=== PATIENT | male | born 1950 | race Caucasian/White ===

== ENCOUNTER 2018-08-20 05:28 | Day surgery (SDC) | payer OTHER, BC ==
[~2018-08-20] VITALS: Ht 180.3 cm; Wt 136.1 kg
--- NOTE | ~2018-08-20 | O ---
[facility] [place] [address] OPERATIVE REPORT Name: CLAYTON ESCALANTE Room #: 150-7 [facility]..#: [id number] Admission: 08/20/18 Attend Phys: Messi Elkins MD Discharge: Date of : 52 Report #: [id number] THIS REPORT FOR: //name// CC: Michael Elkins COGNOS CONSULTANT: None. PREOPERATIVE DIAGNOSIS: Bilateral lower lid ectropion. POSTOPERATIVE DIAGNOSIS: Bilateral lower lid ectropion. OPERATION PERFORMED: Bilateral lower lid ectropion repair. ANESTHESIA: Local with IV sedation. COMPLICATIONS: None. 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 The current procedure is undertaken in order to improve the patient's visual function, lacrimal outflow and level of comfort. Informed consent was obtained to include but not limited to the risk of loss of vision, bleeding, infection, scarring, failure to improve the problem and need for further surgery. DESCRIPTION OF OPERATION: The patient was taken to the operating room, where 2% Xylocaine with epinephrine mixed with equal parts of 0.75% Marcaine with Wydase was administered transcutaneously and transconjunctivally to the lower lid and lateral canthal area. The patient was then prepped and draped in the usual sterile fashion. A Nelson clamp was then used to clamp the lateral canthus, following which a sharp canthotomy and cantholysis were performed. The tarsal strip was prepared laterally, removing the lash-bearing portion of the redundant lid margin and the redundant tarsal plate. Hemostasis was achieved with a monopolar cautery, as it was throughout the case. The tarsal strip was then secured to the internal portion of the lateral orbital tubercle with 2 interrupted 5-0 Prolene sutures. The lateral canthal angle was sharply reformed as the subcutaneous structures and the skin were closed with multiple interrupted 6-0 plain gut sutures. The wound was cleaned and dressed with ophthalmic antibiotic ointment. The [address] [address] OPERATIVE REPORT Name: CLAYTON ESCALANTE Room #: 150-7 [facility]..#: [id number] Admission: 08/20/18 Attend Phys: Messi Elkins MD Discharge: Date of : 52 Report #: [id number] patient was then transported to the recovery area, having tolerated the procedure well with no anesthetic or operative complications being noted. By: [id number] Messi Elkins MD /nt
[~2018-08-20 05:28] MED LIST: ATORVASTATIN CA40 MG PO; BIOTIN5 MG PO; CO Q-10100 M1 PO; GLUCOPHAGE XR500 MG PO; LOVAZA1000 MG PO; MAGOX 400400 MG PO; NORVASC10 MG PO; PREVACID30 MG PO; VITAMIN D1000 UNI2 PO; VITAMINC500 PO; WOMEN'S DAILY1 EACH PO; ZESTORETIC 20-1 EAC1 PO; ZINC CHELATE50 MG PO
[2018-08-20 06:20] VITALS: BP 122/59
== END 2018-08-20 08:45 | disposition home or self-care (01) ==
LOC: OR 05:28 → TBA 05:28 → OR 08:45
DX: H02.105 Unspecified ectropion of left lower eyelid (principal); H02.102 Unspecified ectropion of right lower eyelid; I10 Essential (primary) hypertension; E78.00 Pure hypercholesterolemia, unspecified; E11.9 Type 2 diabetes mellitus without complications; K21.9 Gastro-esophageal reflux disease without esophagitis; G47.33 Obstructive sleep apnea (adult) (pediatric); Z98.41 Cataract extraction status, right eye; Z87.891 Personal history of nicotine dependence; Z98.42 Cataract extraction status, left eye; Z87.442 Personal history of urinary calculi; Z98.890 Other specified postprocedural states; Z79.899 Other long term (current) drug therapy
CPT/HCPCS: 50010; 50101; 50386; 50398; 51636; 56527; 56531; 70005

== ENCOUNTER 2018-09-24 05:30 | Day surgery (SDC) | payer OTHER, BC ==
[~2018-09-24] VITALS: Ht 180.3 cm; Wt 90.3 kg
--- NOTE | ~2018-09-24 | O ---
[facility] [place] [address] OPERATIVE REPORT Name: CLAYTON ESCALANTE Room #: 150-3 [facility]..#: [id number] Admission: 09/24/18 Attend Phys: Messi Elkins MD Discharge: Date of : 52 Report #: [id number] THIS REPORT FOR: //name// CC: Michael Elkins DATE OF SERVICE: 09/24/2018 SURGEON: Messi Elkins MD CUSTOMS COMPLIANCE ANALYST: None. PREOPERATIVE DIAGNOSIS: Bilateral upper lid dermatochalasia with superior visual field defect. POSTOPERATIVE DIAGNOSIS: Bilateral upper lid dermatochalasia with superior visual field defect. OPERATION PERFORMED: Bilateral upper lid functional blepharoplasty. ANESTHESIA: Local with IV sedation. COMPLICATIONS: None. INDICATIONS FOR SURGERY: This patient has acquired upper lid dermatochalasia with superior visual field loss both eyes because of excessive upper lid tissues to include skin and fat. Visual field testing demonstrates dense superior visual defects. Retesting with the upper lid elevated shows an improvement in visual field loss of over 30% and in excess of 12 degrees. The current procedures are undertaken in order to improve the patient's visual function. Informed consent was obtained to include but not limited to the loss of vision, bleeding, infection, scarring, failure to improve the problem and need for further surgery. DESCRIPTION OF OPERATION: The patient was taken to the operating room, where 2% Xylocaine with epinephrine mixed with equal parts of 0.75% Marcaine with Wydase was administered transcutaneously to each upper lid. The patient was then prepped and draped in the usual sterile fashion and a skin-marking pen was then utilized to outline an upper lid crease that was symmetrical on each side. Graefe forceps were then used to quantitate the redundant upper lid skin and it was similarly outlined. The incisions were then made with Maureen scissors and a skin-muscle flap removed from each side with high-temp cautery. Hemostasis was achieved with the monopolar cautery as it was throughout the case. The [address] [address] OPERATIVE REPORT Name: CLAYTON ESCALANTE Room #: 150-3 [facility].#: [id number] Admission: 09/24/18 Attend Phys: Messi Elkins MD Discharge: Date of : 52 Report #: [id number] orbital septum was then identified and the central and medial fat pads were inspected. The redundant soft tissue was then sculpted with the monopolar cautery. The upper lid crease was then reformed with tightening of the pretarsal orbicularis muscle. The upper lid crease was then further reformed with multiple interrupted 6-0 chromic sutures. The skin was then closed with a running 6-0 plain gut suture. The wound was then cleaned and dressed with ophthalmic antibiotic ointment and a nonstick dressing. The patient was transported to the recovery area, where cold compresses were applied, having tolerated the procedure well with no anesthetic or operative complications being noted. By: [id number] Messi Elkins MD /nt
[2018-09-24 07:00] VITALS: BP 136/66
== END 2018-09-24 08:35 | disposition home or self-care (01) ==
LOC: OR 05:30 → TBA 05:30 → OR 08:35
DX: H02.834 Dermatochalasis of left upper eyelid (principal); H02.831 Dermatochalasis of right upper eyelid; H53.40 Unspecified visual field defects; G47.30 Sleep apnea, unspecified; I10 Essential (primary) hypertension; E78.00 Pure hypercholesterolemia, unspecified; R00.1 Bradycardia, unspecified; E11.9 Type 2 diabetes mellitus without complications; K21.9 Gastro-esophageal reflux disease without esophagitis; Z79.899 Other long term (current) drug therapy; Z79.84 Long term (current) use of oral hypoglycemic drugs; Z87.891 Personal history of nicotine dependence; Z98.890 Other specified postprocedural states; Z98.42 Cataract extraction status, left eye; Z98.41 Cataract extraction status, right eye; Z90.49 Acquired absence of other specified parts of digestive tract
CPT/HCPCS: 50010; 50101; 50386; 50398; 56531; 62110; 62850; 70005